=== PATIENT | female | born 2000 | race Caucasian/White ===

== ENCOUNTER 2019-07-23 02:12 | Observation (INO) ==
[2019-07-23] MEDS ORDERED: FLU Vac QV 19-20 (6Month+)/PF 0.5 ML SYRINGE IM ONE (02:20)
== END 2019-07-23 03:07 | disposition home or self-care (01) ==
LOC: 1NENULAB
PROVIDERS: ADMIT Advanced Practice Midwife; ATTEND Advanced Practice Midwife